=== PATIENT | male | born 1940 | race Hispanic/Latino ===

== ENCOUNTER → 2021-04-02 | Outpatient (CLI) | payer OTHER ==
[~2021-04-02] MED LIST: REGADENOSON 0.4 MG/5 ML PF SYG IVP SCH
== END | disposition home or self-care (01) ==
LOC: SHCH 08:08 → EDUNIT# 08:40
PROVIDERS: ATTEND Internal Medicine Cardiovascular Disease
DX: I47.2 Ventricular tachycardia (principal)
CPT/HCPCS: 78452; 93017; 96374; A9500 ×2; J2785

== ENCOUNTER → 2023-07-30 | Outpatient (CLI) | payer OTHER ==
[2023-07-30 12:28] LABS: ALBUMIN 3.4 g/dL (3.5-5.0); BILIRUBIN,TOTAL 0.2 mg/dL (0.2-1.0); CREATININE 1.2 mg/dL (0.5-1.5); POTASSIUM 4.6 mmol/L (3.5-5.1)
== END | disposition home or self-care (01) ==
LOC: LAB 08:28
PROVIDERS: ATTEND Internal Medicine Cardiovascular Disease
DX: I11.0 Hypertensive heart disease with heart failure (principal); I50.32 Chronic diastolic (congestive) heart failure; E78.5 Hyperlipidemia, unspecified; E11.59 Type 2 diabetes mellitus with other circulatory complications
CPT/HCPCS: 36415; 80053; 80061

== ENCOUNTER 2023-11-03 05:53 | Day surgery (SDC) | payer OTHER ==
[2023-10-30 14:35] VITALS: BP 142/70; PULSE 77; RESP 19
[2023-10-30 14:45] LABS: BASOPHILS # (AUTO) 0.02 K/uL (0.00-0.20); BASOPHILS % (AUTO) 0.4 % (0.0-5.0); EOSINOPHILS # (AUTO) 0.12 K/uL (0.00-0.70); EOSINOPHILS % (AUTO) 2.4 % (0.0-8.0); IMMATURE GRANULOCYTE ABSOLUTE 0.03 K/uL (0-1); LYMPHOCYTES # (AUTO) 1.1 K/uL (1.0-4.8); LYMPHOCYTES % (AUTO) 21.2 % (21.0-51.0); MEAN CORPUSCULAR HEMOGLOBIN 30.6 pg (27.0-33.0); MEAN CORPUSCULAR HGB CONC 32.1 g/dL (32.0-36.0); MEAN CORPUSCULAR VOLUME 95.4 fL (79-99); MONOCYTES # (AUTO) 0.6 K/uL (0.1-1.0); MONOCYTES % (AUTO) 10.8 % (3.0-13.0); NEUTROPHILS # (AUTO) 3.3 K/uL (1.8-7.7); NEUTROPHILS % (AUTO) 64.6 % (40.0-77.0); PLATELET COUNT (AUTO) 196 K/uL (130-400); RED BLOOD CELL COUNT(AUTO) 3.46 MIL/uL (4.50-6.20); RED CELL DISTRIBUTION WIDTH 15.2 % (11.0-15.5); WHITE BLOOD COUNT (AUTO) 5.1 K/uL (4.8-10.8)
[2023-10-30 14:53] LABS: CREATININE 1.5 mg/dL (0.5-1.3); POTASSIUM 4.8 mmol/L (3.5-5.1)
[2023-10-30 14:54] LABS: INR 1.19 (0.85-1.15); PROTHROMBIN TIME 13.9 SEC (9.6-11.6)
[2023-10-30 14:56] LABS: PARTIAL THROMBOPLASTIN TIME 32.3 SEC (26.3-35.5)
[2023-11-03] VITALS (7 sets, daily range): BP systolic 97–149; BP diastolic 55–74; PULSE 73–93; RESP 16–18
[~2023-11-03] VITALS: Ht 170.2 cm; Wt 96.2 kg
[~2023-11-03 05:53] MED LIST changes: +ATOR40TA71 PO; +LATA2.5D14 OU; +LEVO200T10 PO; +LOSA100T59 PO; +METF-446 PO; +PIOG30TA70 PO; -REGADENOSON 0.4 MG/5 ML PF SYG IVP SCH
[2023-11-03] MEDS ORDERED: LIDOCAINE HCL 1% MDV 50ML VIAL ONE (07:45)
[2023-11-03] MEDS ORDERED: VANCOMYCIN 1G/250ML KIT 500 ML IV ONE (07:45)
[2023-11-03] MEDS ORDERED: BUPIVACAINE/PF 0.25% 30ML VIAL IJ ONE (07:46)
[2023-11-03] MEDS ORDERED: MEPERIDINE-PF 25 MG/ML SYG ONE ×3 (07:46→08:30)
[2023-11-03] MEDS ORDERED: MIDAZOLAM HCL 1 MG/ML 2ML VIAL ONE ×3 (07:46→08:30)
[2023-11-03] MEDS: 0.9%NACL 1000ML 1,000 ML IV ONE (07:47)
[2023-11-03] MEDS ORDERED: BACITRACIN 1 EACH PACKET TP ONE (08:48)
[2023-11-03] MEDS ORDERED: TRAM50TA4 PO (09:18)
[2023-11-03] MEDS ORDERED: ACETAMINOPHEN WITH CODEINE 1 TAB TAB PO PRN (09:30)
[2023-11-03] MEDS ORDERED: ACETAMINOPHEN 500 MG TABLET PO PRN (09:30)
== END 2023-11-03 12:38 | disposition home or self-care (01) ==
LOC: DAH 05:53
PROVIDERS: ATTEND Internal Medicine Cardiovascular Disease
DX: T82.897A Other specified complication of cardiac prosthetic devices, implants and grafts, initial encounter (principal); I44.2 Atrioventricular block, complete; I10 Essential (primary) hypertension; E78.5 Hyperlipidemia, unspecified; E03.9 Hypothyroidism, unspecified; E11.9 Type 2 diabetes mellitus without complications; Z88.0 Allergy status to penicillin; Z79.84 Long term (current) use of oral hypoglycemic drugs; Z79.890 Hormone replacement therapy; Z79.899 Other long term (current) drug therapy; Z98.890 Other specified postprocedural states; Y83.8 Other surgical procedures as the cause of abnormal reaction of the patient, or of later complication, without mention of misadventure at the time of the procedure; Y92.89 Other specified places as the place of occurrence of the external cause
CPT/HCPCS: 80048; 85025; 85610; 85730; 36415; 93005; 33228; 82948 ×2; C1785; J7030; J0665; J2250 ×3; J3370; J2175 ×3; J3490; A4215; A6251; A4222; A4221; A4663; A4216; A6258; A4606; A4223 ×3; 99156; 99157